=== PATIENT | female | born 2005 | race Caucasian/White ===

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

== ENCOUNTER 2025-06-08 14:22 | Emergency (ER) | payer SELFPAY ==
--- NOTE | 2025-06-08 14:23 | ED_ITS ---
HPI - General Adult General Chief complaint: Ear Stated complaint: Left Ear Irritation Time Seen by Provider: 06/08/25 14:38 Source: patient, RN notes reviewed and old records reviewed Mode of arrival: ambulatory Limitations: no limitations History of Present Illness HPI narrative: 19-year-old female presents to the [facility] with 1 day history of sore throat and left ear irritation. Denies fevers. Denies any other symptoms. Did take a dose of ibuprofen Related Data Home Medications ?Medication ?Instructions ?Recorded ?Confirmed ?Last Taken ?Type lisinopril 5 mg tablet 5 mg PO DAILY 03/09/2107/2407/18/21 History albuterol sulfate 90 mcg/actuation 2 puff inhalation Q ID PRN 09/10/21 07/24/24 Unknown History aerosol inhaler difficulty breathing Allergies Allergy/AdvReac Type Severity Reaction Status Date / Time No Known Allergies Allergy Verified 06/08/25 14:33 Review of Systems Review of Systems: All systems reviewed & are unremarkable except as noted in HPI and below Constitutional: Constitutional: Reports no additional constitutional complaints ENT: Reports as per HPI, Reports otalgia and Reports sore throat Cardiovascular: Cardiovascular: Reports no additional cardiovascular complaints, Denies chest pain and Denies dyspnea Respiratory: Respiratory: Reports no additional respiratory complaints, Denies chest congestion, Denies cough and Denies dyspnea Musculoskeletal: Musculoskeletal: Reports no additional musculoskeletal complaints Integumentary/Breasts: Skin/Breast: Reports system reviewed and no additional complaints, except as docu PMFSH Past Medical History Medical History Asthma Hypertension Surgical History Surgical History No history of previous surgery Family History Family History Mother Hypertension Social History Social History Smoking status: Never smoker Alcohol intake: never Substance use: never Living arrangements: with family Gender identity (if verbalized by the patient): Female Comments At the time of my signature, I reviewed and agree with the nursing past medical, surgical, social, and family history. There is no relevant family history pertinent to the patient complaint. Exam Const: General: cooperative, healthy appearing, comfortable, no acute distress, well developed, alert and well nourished Nutritional Appearance: well nourished Orientation/consciousness: patient oriented x3 Limitations: no limitations HENMT: Head: normal to inspection Ears: hearing grossly normal bilaterally, external ears normal, mastoids normal, no periauricular adenopathy, Abnormal EAC present erythema on the left and TM abnormal bulging on the left and with fluid behind the TM bilateral; not erythematous Mouth: Yes Normal oral and palatal mucosa present, Yes lip normal, Yes tongue normal and Yes moist mucous membranes Throat: posterior oropharynx normal, uvula midline and no uvular edema Eyes: General: appearance normal, both eyes and all related structures Alignment and Position: alignment normal Neck: Neck: normal visual inspection, full ROM, no lymphadenopathy and no meningeal signs Chest: Chest palpation & inspection: normal inspection of the chest Resp: Effort & Inspection: normal respiratory effort and able to speak in complete sentences Auscultation: clear to auscultation bilaterally, no crackles, no rales, no rhonchi and no wheezes Cardio: Rate: regular rate Skin: General skin exam: normal color and no rashes or lesions noted Neuro: General: patient oriented x3, gait normal, moves all extremities and no meningeal signs Cognition (Neuro): normal cognition Speech: normal speech Gait exam (Neuro): Normal gait present Extrem: General: normal to inspection, full ROM, capillary refill normal and normal gait Psych: Appearance: grossly normal and well kempt Mental Status: mental status grossly normal Speech and movement: Normal speech and movement present and Clear speech present Affect: normal affect Attitude: cooperative Course Course Level of Care: Express Care Visit Vital Signs Vital signs: Vital Signs Temperature 98.1 F 06/08/25 14:30 Pulse Rate 87 06/08/25 14:30 Respiratory Rate 16 06/08/25 14:30 Blood Pressure 161/114 H 06/08/25 14:30 Pulse Oximetry 98 06/08/25 14:30 Oxygen Delivery Room Air 06/08/25 14:30 Temperature 98.1 F 06/08/25 14:30 Pulse Rate 87 06/08/25 14:30 Respiratory Rate 16 06/08/25 14:30 Blood Pressure 161/114 H 06/08/25 14:30 Pulse Oximetry 98 06/08/25 14:30 Oxygen Delivery Room Air 06/08/25 14:30 Reviewed Medical Decision Making MDM Narrative Medical decision making narrative: Patient sitting comfortably in exam room. Nontoxic, vitals stable. Patient in no acute distress Patient presents for 1 day history of URI symptoms. Strep test offered, patient declined Discharge instructions reviewed with patient, as well as provided in writing per nursing staff. The instructions also include specific and strict return/GO TO THE ER as well as f/u information. All questions have been answered, and the patient deny any further questions with discharge and discharge plan. Some parts of this dictation were generated by voice recognition software and may contain typographical and/or grammatical inaccuracies. Differential Diagnosis Differential Diagnosis: Strep, flu, COVID, URI, postnasal drainage, allergies Medical Records Medical records reviewed: Yes I reviewed the external patient's medical records. Vital Signs Vital Signs: Vital Signs Temperature 98.1 F 06/08/25 14:30 Pulse Rate 87 06/08/25 14:30 Respiratory Rate 16 06/08/25 14:30 Blood Pressure 161/114 H 06/08/25 14:30 Pulse Oximetry 98 06/08/25 14:30 Oxygen Delivery Room Air 06/08/25 14:30 Temperature 98.1 F 06/08/25 14:30 Pulse Rate 87 06/08/25 14:30 Respiratory Rate 16 06/08/25 14:30 Blood Pressure 161/114 H 06/08/25 14:30 Pulse Oximetry 98 06/08/25 14:30 Oxygen Delivery Room Air 06/08/25 14:30 Reviewed Lab Data Lab results reviewed: Yes I reviewed the patient's lab results. Labs: Reviewed Critical Care Time Critical Care Time Critical Care Time: No Discharge Plan Discharge Clinical Impression: Acute viral pharyngitis Upper respiratory infection Qualifiers: URI type: unspecified viral URI Qualified Code(s): J06.9 - Acute upper r espiratory infection, unspecified Irritation of external ear canal Qualifiers: Laterality: left Qualified Code(s): H61.892 - Other specified disorders of left external ear Patient Disposition: Home Condition: Stable Instructions: Antibiotic Form, Pharyngitis (ED), Upper Respiratory Infection (DC) Additional Instructions: Today your blood pressure was 161/114. Please follow-up with primary care provider within the next 2 weeks to have this rechecked. Untreated or undertreated blood pressure can lead to more serious health issues. Your symptoms are likely due to a viral illness, which is not treated with antibiotics. Typically viral infections last 7-10 days, can linger for couple of weeks. It is very important to treat your symptoms. Drink plenty of water, Gatorade, Pedialyte, ice pops or Jell-O. -Alternate Tylenol and Motrin per package directions for fever or pain. You can alternate every 4 hours -Antihistamine medication such as Zyrtec/Claritin/Karla during the day can help improve symptoms. -doing daily nasal irrigations can help relieve pressure your sinuses. Things l raúl a Neti pot -Use Flonase twice a day for 5 days then daily to help reduce the inflammation and dry up your sinuses. -You can also use Mucinex. Be sure to drink plenty of water with this medicatio n at least 8 ounces with every dose and it is important to drink 8 to 10 glasses of water per day. Water is a natural decongestant -Eat and drink things that are easy to swallow, like tea or soup, or popsicles. -Oral rinses such as: Salt water gargles and/or may use topical anesthetic (eg. Chloraseptic spray) or lozenges to relieve dryness or throat pain). -Frequent hand washing or hand cocktail lounge manager is one of the best ways to prevent spread of infection. -Using a vaporizer or humidifier at night will also help thin secretions and help with coughing up phlegm. -Follow up with primary care provider in 7-10 days if condition is not improving - For new or worsening symptoms go directly to the nearest ER Patient Language: Belarusian Prescriptions: New [id number]-AU 3.5-10,000-1 mg/mL-unit/mL-% drops,suspension 4 drp LEFT EAR TID 7 Days Qty: 10 0RF No Action lisinopril 5 mg Tablet 5 mg PO DAILY albuterol sulfate 90 mcg/actuation Hfa Aerosol Inhaler 2 puff INHALATION QID PRN (Reason: difficulty breathing) Follow-up/Referrals: UNKNOWN,DOCTOR [Non-Staff] Stand Alone Forms: Work/School Release IP Time of Disposition: 14:45
[2025-06-08 14:30] VITALS: BP 161/114; PULSE 87; RESP 16; TEMP 36.7; O2SAT 98
== END 2025-06-08 14:55 | disposition home or self-care (01) ==
PROVIDERS: Emergency Provider Nurse Practitioner
DX: J02.8 Acute pharyngitis due to other specified organisms (principal); J06.9 Acute upper respiratory infection, unspecified; H61.892 Other specified disorders of left external ear; I10 Essential (primary) hypertension; J45.909 Unspecified asthma, uncomplicated
CPT/HCPCS: 99213; G0463